=== PATIENT | female | born 1980 | race African-American/Black ===

== ENCOUNTER 2018-11-30 15:40 | Day surgery (SDC) | payer OTHER ==
[2018-11-27 17:12] VITALS: BMI 29.0
--- NOTE | 2018-11-30 14:22 | HP ---
History & Physical Update - Physical Physical: No Change - Assessment Assessment: No Change - Plan Plan: No Change (h&P rewived, no changes)
[2018-11-30] MEDS ORDERED: ACETAMINOPHEN 1000 MG/100 ML VIAL (NON FORMULARY) IVPB ONE (16:05)
[2018-11-30] MEDS ORDERED: ONDANSETRON 4 MG/2 ML VIAL IVPUSH PRN ×2 (16:05→18:29)
[2018-11-30 16:09] LABS: INR 1.03 (0.83-1.09); PROTHROMBIN TIME (PATIENT) 12.2 SEC (9.7-13.0)
[2018-11-30 16:12] LABS: ACTIVATED PTT 28.9 SECONDS (25.2-36.5)
[2018-11-30] MEDS ORDERED: LACTATED RINGERS SOLUTION 1,000 ML IV SCH (16:15)
[2018-11-30] MEDS ORDERED: KETOROLAC TROMETHAMINE 30 MG/1 ML VIAL ONE (16:31)
[2018-11-30] MEDS ORDERED: DEXAMETHASONE SOD PHOSPHATE 4 MG/1 ML VIAL ONE (16:31)
[2018-11-30] MEDS ORDERED: MIDAZOLAM HCL 2 MG/2 ML SINGLE DOSE VIAL ONE (18:18)
[2018-11-30] MEDS ORDERED: oxyCODONE HCL 5 MG TABLET PO PRN (18:29)
[2018-11-30] MEDS ORDERED: IBUPROFEN 800 MG/8 ML IJ IVPB PRN (18:29)
[2018-11-30] MEDS ORDERED: IBUPROFEN 600 MG TABLET (FP) PO PRN (18:29)
[2018-11-30] MEDS ORDERED: ELECTROLYTE-148 SOLN 1,000 ML IV SCH (18:30)
[2018-11-30 21:33] VITALS: BP 125/80; PULSE 90; TEMP 98.3
--- NOTE | 2018-12-03 11:14 | PATH ---
Surgical Pathology Report Patient Name: TAMMY DE LEON [facility]. Rec. #: [id number] /Age/Gender: 1980 (Age: 38) / F Account: [id number] Location: [facility] SURGICAL Taken: 11/30/2018 Received: 12/01/2018 Reported: 12/03/2018 Physicians: Ajith Mack M.D. Specimen(s) Received A: ENDOMETRIAL FIBROID B: ENDOMETRIAL CURETTINGS Clinical History Submucous myoma Final Diagnosis A. ENDOMETRIAL FIBROIDS, BIOPSY: FRAGMENTS OF SMOOTH MUSCLE BUNDLES, MAY REPRESENT SUBMUCOSAL LEIOMYOMA IN THE PROPER CLINICAL SETTING. SEPARATE FRAGMENTS OF SECRETORY TYPE ENDOMETRIUM. B. ENDOMETRIAL CURETTINGS: FRAGMENTS OF SECRETORY TYPE ENDOMETRIUM. SEPARATE ENDOCERVICAL TISSUE WITH NO SIGNIFICANT PATHOLOGIC CHANGE. Electronically Signed Claudette Beltrán M.D. Gross Description A. Received in formalin labeled "endometrial fibroid," is a 2.0 x 1.7 x 0.3 cm aggregate of [place] soft tissue fragments. The specimen is entirely submitted in one cassette. B. Received in formalin labeled "endometrial curettings," and a 3.4 x 2.7 x 0.4 cm aggregate of randhawa-brown soft tissue fragments admixed with blood clot. The specimen is entirely submitted in 2 cassettes. 12/01/201812/01/2018
--- NOTE | 2018-12-22 12:39 | OP ---
Operative Note - Note: Operative Date: 11/30/18 Pre-Operative Diagnosis: menometrorrhagia , fibroid uterus Operation: hysteroscopy, D&C, submucos myoma resection Findings: submucos myoma, irregular EM, enlarged uterus Post-Operative Diagnosis: Same as Pre-op Surgeon: Ajith Mack Anesthesia: General Specimens Removed: EM curetting, submucos myoma resection Estimated Blood Loss (mls): 50 Instrument used (Debridements only): symphion resectoscope Operative Report Dictated: Yes
--- NOTE | 2018-12-23 00:44 | OP ---
DATE OF OPERATION: 11/30/2018 PREOPERATIVE DIAGNOSIS: Menometrorrhagia, fibroid uterus, submucosal myoma. POSTOPERATIVE DIAGNOSIS: Menometrorrhagia, fibroid uterus, submucosal myoma. PROCEDURE: Hysteroscopy dilation and curettage and resection of submucous myoma. SURGEON: Ajith Mack M.D. ANESTHESIA: General. ESTIMATED BLOOD LOSS: 50 mL. OPERATION: Patient was taken to the operating room where adequate general anesthesia in dorsal lithotomy position. Examination under anesthesia revealed external genitalia to be normal. Cervix was clean, no gross lesion. Uterus was enlarged, irregular, with multiple myoma. Adnexa, no masses were palpable. Then with the weighted speculum in the vagina, anterior lip of the cervix was grasped with single-toothed tenaculum. Cervix was slightly dilated, then the Symphion resectoscope was introduced into the uterus. Visualization of endocervical canal appeared to be normal. Endometrium was irregular, thickened, and there was a submucous myoma at the fundal area of the uterus. Endometrium was irregular secondary to multiple intramural myomas. Both cornual regions were identified. No other abnormality was noticed. Then with the Symphion resectoscope, the submucous myoma was resected and suctioned. Then endometrium was curetted. Patient tolerated procedure well, left the OR in good condition. AJITH MACK M.D. /[id number]
== END 2018-11-30 21:36 | disposition home or self-care (01) ==
LOC: JASU-SURG 15:40 → J3W 21:18 → JASU-SURG 21:36
PROVIDERS: ATTEND Obstetrics & Gynecology
PROC: 0UJD8ZZ Inspection of Uterus and Cervix, Via Natural or Artificial Opening Endoscopic (ICD-10-PCS; 2018-11-30)
PROC: 0UB98ZZ Excision of Uterus, Via Natural or Artificial Opening Endoscopic (ICD-10-PCS; principal; 2018-11-30 16:30)
PROC: 0UDB7ZX Extraction of Endometrium, Via Natural or Artificial Opening, Diagnostic (ICD-10-PCS; 2018-11-30 16:30)
DX: N92.1 Excessive and frequent menstruation with irregular cycle (principal); D25.0 Submucous leiomyoma of uterus
CPT/HCPCS: 36415; 84702; 85610; 85730; 88305-TC; 94760